=== PATIENT | male | born 1990 | race Caucasian/White ===

== ENCOUNTER 2022-08-12 19:01 | Emergency (ER) | payer BC, OTHER ==
[~2022-08-12] VITALS: Ht 182.9 cm; Wt 102.3 kg
[2022-08-12 19:15] VITALS: BP 133/82
== END 2022-08-12 20:27 | disposition left against medical advice (07) ==
LOC: M ED 19:01
DX: Z53.21 Procedure and treatment not carried out due to patient leaving prior to being seen by health care provider (principal)

== ENCOUNTER → 2024-01-13 | Outpatient (REF) | payer OTHER | LOC: M LABSMT 09:02 | PROVIDERS: ATTEND Urology | DX: Z30.2 Encounter for sterilization (principal) ==